=== PATIENT | female | born 1990 | race African-American/Black ===

== ENCOUNTER 2019-07-09 18:10 | Emergency (ER) | payer OTHER ==
[~2019-07-09] VITALS: Ht 167.6 cm; Wt 57.2 kg
--- NOTE | 2019-07-09 18:27 | NUR ---
ED Nurse Note:urine sent to labs
[2019-07-09] MEDS ORDERED: Ketorolac 30mg Inj IM ONE (18:45)
[2019-07-09] MEDS ORDERED: Metoclopramide 10mg/2ml Inj IM ONE (18:45)
[2019-07-09] MEDS ORDERED: Excedrin Migraine tab ORAL ONE (18:45)
[2019-07-09 19:00] LABS: APPEARANCE,URINE CLEAR; BILIRUBIN, URINE NEGATIVE (NEGATIVE); COLOR,URINE PALE YELLOW; GLUCOSE, URINE (UA) NEGATIVE (NEGATIVE); KETONES,URINE NEGATIVE (NEGATIVE); LEUKOCYTE ESTERASE ,URINE NEGATIVE (NEGATIVE); NITRITE,URINE NEGATIVE (NEGATIVE); PH,URINE 6 (4.5-8.0); PROTEIN,URINE NEGATIVE (NEGATIVE); UROBILINOGEN,URINE NORMAL MG/DL (0.0-1.0)
--- NOTE | 2019-07-09 19:22 | NUR ---
ED Nurse Note: Medicatyions given as prescribed. Metoclopromide injection changed to oral. Metoclopromide injection not given. Torodol injection given IM.
--- NOTE | 2019-07-09 19:49 | Emergency Room Report ---
History of Present Illness General Chief Complaint: Headache Source: Patient Present Illness HPI 28-year-old female presents to the emergency department complaining of 7 out of 10 severity headache that has not responded to [id number] Tylenol. Patient reports she has been having several migraines in the last 3 weeks. Patient denies nausea, vomiting, dizziness, changes in vision, neck pain or stiffness. Patient describes her headache as a throbbing constant sensation primarily in the front part of her forehead. She denies trauma or fall. Denies photophobia, numbness/ tingling or loss of sensation or gross motor movements of the extremities, incontinence of bowel or bladder. Denies recent illness. Denies CP, Palpitations, LOC, AMS, extremity weakness or a sudden severe headache. She denies urinary frequency, urgency, dysuria or hematuria. She denies abdominal pain or tenderness. She denies . Allergies: Coded Allergies: No Known Allergies (Unverified , 07/09/19) Patient History Past Medical History: see triage record Past Surgical History: none Pertinent Family History: none Last Menstrual Period: n/a Now: No Reviewed Nursing Documentation: PMH: Agreed; PSxH: Agreed Nursing Documentation-PMH Past Medical History: No Stated History Review of Systems All Other Systems: negative except mentioned in HPI Physical Exam Vital Signs Date Time Temp Pulse Resp B/P (MAP) Pulse Ox O2 Delivery O2 Flow Rate FiO2 07/09/19 18:15 98.6 74 18 136/92 (107) 99 Room Air Sp02 EP Interpretation: reviewed, normal General Appearance: no apparent distress, alert, GCS 15, non-toxic Head: normocephalic, atraumatic Eyes: bilateral eye normal inspection, bilateral eye PERRL, bilateral eye other - no photophobia ENT: hearing grossly normal, normal voice Neck: full range of motion, no meningismus, no bony tend Respiratory: lungs clear, normal breath sounds, speaking full sentences Cardiovascular #1: regular rate, rhythm Gastrointestinal: non tender, soft Genitourinary: normal inspection, no CVA tenderness Musculoskeletal: back normal, gait/station normal, normal range of motion, non- tender Neurologic: alert, oriented x3, responsive, motor strength/tone normal, sensory intact, normal gait, speech normal, other - Negative Romberg, Normal finger to nose/ no ataxia, grossly normal Psychiatric: judgement/insight normal Medical Decision Making PA Attestation Dr. Lee Is my supervising Physician whom patient management has been discussed with. Diagnostic Impression: Primary Impression: Headache Qualified Codes: R51 - Headache ER Course 28-year-old female presents to the emergency department complaining of 7 out of 10 severity headache that has not responded to [id number] Tylenol. Patient reports she has been having several migraines in the last 3 weeks. Patient denies nausea, vomiting, dizziness, changes in vision, neck pain or stiffness. Patient describes her headache as a throbbing constant sensation primarily in the front part of her forehead. She denies trauma or fall. Denies photophobia, numbness/ tingling or loss of sensation or gross motor movements of the extremities, incontinence of bowel or bladder. Denies recent illness. Denies CP, Palpitations, LOC, AMS, extremity weakness or a sudden severe headache. She denies urinary frequency, urgency, dysuria or hematuria. She denies abdominal pain or tenderness. She denies . Ddx considered but are not limited to migraine, SAH, Pseudomotor Cerebri, Mass lesion, Cluster PATRICIA, Tension PATRICIA, Post lumbar puncture PATRICIA.UTI or Vital signs: are WNL, pt. is afebrile H&PE are most consistent with tension type headache, No focal neurological deficits. Negative Romberg, NAD, non-toxic in appearance. ORDERS: - UA: WNL -Urine Hcg: Negative ED INTERVENTIONS: - Reglan PO -IM Toradol -Excedrin migraine upon reassessment: Pt. reports her headache has almost completely resolved. Pt. requesting to be d/c. DISCHARGE: At this time pt. is stable for d/c to home. Will provide printed patient care instructions, and any necessary prescriptions. Care plan and follow up instructions have been discussed with the patient prior to discharge. Labs Test 07/09/19 18:30 Urine Color Pale yellow Urine Appearance Clear Urine pH 6 (4.5-8.0) Urine Specific [place] 1.010 (1.005-1.035) Urine Protein Negative (NEGATIVE) Urine Glucose (UA) Negative (NEGATIVE) Urine Ketones Negative (NEGATIVE) Urine Blood Negative (NEGATIVE) Urine Nitrite Negative (NEGATIVE) Urine Bilirubin Negative (NEGATIVE) Urine Urobilinogen Normal MG/DL (0.0-1.0) Urine Leukocyte Esterase Negative (NEGATIVE) Urine HCG, Qualitative Negative (NEGATIVE) Last Vital Signs Date Time Temp Pulse Resp B/P (MAP) Pulse Ox O2 Delivery O2 Flow Rate FiO2 07/09/19 18:15 98.6 74 18 136/92 (107) 99 Room Air Disposition: HOME, SELF-CARE Condition: Stable Scripts Aspirin/Acetaminophen/Caffeine (EXCEDRIN MIGRAINE GELTAB) 1 Each Tablet 2 EACH PO Q8HR, #30 TAB Prov: Elizabeth Fernandes 07/09/19 Patient Instructions: General Headache Without Cause Additional Instructions: Take medications as directed. Follow up with a Primary Care Provider in 3-5 days For a referral to have NEUROLOGIST Evaluation, even if your symptoms have resolved. --Please review list of primary care clinics, if you do not already have a primary care provider Return sooner to ED if new symptoms occur, or current symptoms become worse. - Please note that this Emergency Department Report was dictated using [employer] pickup technology software, occasionally this can lead to erroneous entry secondary to interpretation by the dictation equipment. Elizabeth Fernandes Jul 09, 2019 19:49
[2019-07-09] MEDS ORDERED: EXCEDRIN MIGRA1 EACH PO (20:14)
[2019-07-09 20:15] VITALS: BP 136/92
--- NOTE | 2019-07-09 20:15 | NUR ---
ER Nurse Note: Pt seen, treated, medically cleared for discharge by ER PA. Discharge instuctions and prescriptions given with repeat verbalization by pt. Emphasized to follow up with primay care provider; take whole course of medication. Explained each medication. All orders completed per ER PA orders. Pt a&ox4, VSS, no signs of distress. ID band removed. All questions answered per pt's questions. Pt left with all belongings, left with own transportation.
== END 2019-07-09 20:15 | disposition home or self-care (01) ==
LOC: EMR 20:08
DX: R51 Headache (principal)
CPT/HCPCS: 81003; 81025; 96372; 99283; J1885; J2765